=== PATIENT | female | born 1955 | race Caucasian/White ===

== ENCOUNTER 2016-10-03 16:34 | Inpatient (IN) | payer MEDICAID, OTHER ==
[~2016-10-03] VITALS: Ht 129.5 cm; Wt 69.0 kg
[2016-10-03 17:12] VITALS: BP 142/92
[2016-10-03] MEDS ORDERED: PRINIVIL20 M1 PO (17:17)
[2016-10-03] MEDS ORDERED: PRAVACHOL20 M1 PO (17:17)
[2016-10-03] MEDS ORDERED: TAMIFLU75 MG PO (17:17)
[2016-10-03] MEDS ORDERED: OMEPRAZOLE DR20 M1 PO (17:17)
[2016-10-03] MEDS ORDERED: GLYBURIDE2.5 M1 PO (17:17)
--- NOTE | 2016-10-03 19:22 | NUR ---
Patient ambulated to bed 5. RN evaluating patient at bedside.
--- NOTE | 2016-10-03 19:27 | NUR ---
61Y/F PT PRESENTS TO ER WITH C/O COUGH/CONGESTION X4 DAYS. PT STATES SHE WAS SEEN BY PCP 10/01/16 AND STARTED ON TAMIFLU, BUT FEELS LIKE SHE'S GETTING WORSE. HX DM, HTN, HYPERLIPIDEMIA, GERD.DENIES N/V/D; SKIN IS PINK/WARM/DRY; AAOX4 WITH EVEN AND STEADY GAIT; LUNGS CLEAR BL; HR EVEN AND REGULAR; PT DENIES ANY FEVER, CP, SOB, OR COUGH AT THIS TIME; C/O BODY ACHE ,PATIENT STATES PAIN OF 10/10 AT THIS TIME; VSS; PATIENT POSITIONED FOR COMFORT; HOB ELEVATED; BEDRAILS UP X2; BED DOWN. ER MD MADE AWARE OF PT STATUS.
[2016-10-03] MEDS ORDERED: ALBUTEROL SULFATE/IPRATROPIU 3 ML SOL IH ONE (21:10)
[2016-10-03] MEDS ORDERED: predniSONE 20 MG TAB PO ONE (21:10)
[2016-10-03] MEDS ORDERED: ALBUTEROL 0.083% 2.5 MG/3 ML NEBU INH ONE (21:10)
[2016-10-03] MEDS ORDERED: KETOROLAC 30 MG/ML VIAL IVP ONE (21:15)
--- NOTE | 2016-10-03 21:20 | NUR ---
Respiratory Therapist at bedside for respiratory intervention. Patient tolerated .
[2016-10-03] MEDS ORDERED: ALBUTEROL 0.083% 2.5 MG/3 ML NEBU INH PRN (21:25)
[2016-10-03] MEDS ORDERED: LEVOFLOXACIN 500 MG/D5W PREMIX 100 ML IV ONE (21:25)
[2016-10-03] MEDS ORDERED: ACETAMINOPHEN 325 MG TAB PO PRN (21:25)
[2016-10-03] MEDS ORDERED: ONDANSETRON 4 MG/2 ML VIAL IVP PRN (21:25)
[2016-10-03] MEDS ORDERED: GLUCOPHAGE500 MG PO (21:46)
--- NOTE | 2016-10-03 22:10 | NUR ---
Patient will be admitted to care of DR. LILLY. Admited to TELE. Will go to room 121A. Belongings list completed. Report to ROSA ELENA BATEMAN.
[2016-10-03 22:16] VITALS: BP 104/78
--- NOTE | 2016-10-03 22:16 | NUR ---
RECEIVED REPORT FROM ED RN FOR CONTINUITY OF CARE. 61 Y. O. FEMALE ADMITTED WITH DX: SOB, BROUGHT TO UNIT ON GURNEY AMBULATED TO BED. PATIENT IS A&OX4,TURKMEN SPEAKING, DISCUSSED PLAN OF CARE WITH PATIENT, VERBALIZED UNDERSTANDING. SHIFT ASSESSMENT DONE, VS TAKEN STABLE. PATIENT ON 2L O2 WITH INTERMITTENT COUGH. PATIENT DENIES PAIN. IV LT AC 22 GAUGE PATENT AND FLUSHED. SKIN INTACT. SAFETY/FALL PRECAUTIONS ENFORCED. PATIENT USED BEDSIDE COMMODE, VOIDED. CALL LIGHT WITHIN REACH. WILL CONTINUE TO MONITOR
--- NOTE | 2016-10-03 22:56 | NUR ---
SPOKE WITH DR. ROY, INFORMED DR OF LOW MAG LEVEL, ORDERS RECEIVED
[2016-10-03] MEDS: NACL 0.9% 1,000 ML IV SCH (22:58)
[2016-10-03] MEDS ORDERED: INSULIN ASPART SLIDING SCALE 100 UNITS/ML VIAL SUBQ PRN (23:05)
[2016-10-04] VITALS: BP 130/81
[2016-10-04] MEDS ORDERED: MAG SULF 2000 MG/WATER PREMIX 50 ML IV SCH
[2016-10-04] MEDS: ALBUTEROL 0.083% 2.5 MG/3 ML NEBU INH SCH ×4 (00:09→11:03)
--- NOTE | 2016-10-04 00:09 | NUR ---
VS TAKEN, STABLE. PATIENT HAS PERSISTENT COUGH, CALLED RT FOR BREATHING TX. WILL CONTINUE TO MONITOR.
[2016-10-04] MEDS ORDERED: INFLUENZA VIRUS VACCINE QUAD 0.5 ML SYR IMVAC PRN (01:30)
--- NOTE | 2016-10-04 02:17 | NUR ---
PATIENT HAS INTERMITTENT COUGH WHILE SLEEPING. MAG CONNIE INFUSING. CALL LIGHT WITHIN REACH.
[2016-10-04 04:00] VITALS: BP 125/53
--- NOTE | 2016-10-04 04:21 | NUR ---
VS TAKEN, STABLE. ATTEMPTED TO COLLECT SPUTUM SAMPLE, NON PRODUCTIVE COUGH NOTED. CALL LIGHT WITHIN REACH.
[2016-10-04] MEDS: MORPHINE SULFATE 2 MG/ML SYR IVP PRN (06:12)
--- NOTE | 2016-10-04 06:39 | NUR ---
BLOOD SUGAR TAKEN, 357, ADMINISTERED INSULIN PER MD ORDER.
--- NOTE | 2016-10-04 07:12 | NUR ---
ENDORSED PATIENT TO DAYSHIFT RN FOR CONTINUITY OF CARE, PATIENT IS SLEEPING NO S/S OF DISTRESS NOTED.
--- NOTE | 2016-10-04 07:13 | NUR ---
RECEIVED PT FROM ROSA ELENA BATEMAN ASLEEP ON BED BUT EASILY AWAKEN, AAOX4, NO S/S OF RESPIRATORY DISTRESS, WITH O2 2LPM NC, SKIN IS INTACT. WITH IV ACCESS ON LEFT AC 22G INFUSING FLUIDS WELL. DISCUSSED PLAN OF CARE, PT VERBALIZED UNDERSTANDING. CALL LIGHT WIHTIN REACH, WILL CONTINUE TO MONITOR.
[2016-10-04] MEDS ORDERED: BLOOD GLUCOSE MONITORING 1 DEV DEV FS SCH ×2 (07:30→11:30)
[2016-10-04 08:00] VITALS: BP 119/70
[2016-10-04] MEDS: FAMOTIDINE 20 MG TAB PO SCH (08:58)
[2016-10-04] MEDS: SACCHAROMYCES 250 MG CAP PO SCH ×2 (08:58→21:15)
[2016-10-04] MEDS: DOCUSATE SODIUM 100 MG GELCAP PO SCH (08:58)
--- NOTE | 2016-10-04 09:00 | NUR ---
DUE MEDS GIVEN, PT TOLERATED WELL. ALL NEEDS MET AT THIS TIME. CALL LIGHT WITHIN REACH, WILL CONTINUE TO MONITOR.
--- NOTE | 2016-10-04 10:21 | NUR ---
WITH RELATIVE AT BEDSIDE. PT HAS INTERMITTENT NON PRODUCTIVE COUGH. ASSISTED PT TO RESTROOM THEN BACK TO BED. NO S/S OF RESPIRATORY DISTRESS. CALL LIGHT WITHIN REACH, WILL CONTINUE TO MONITOR.
--- NOTE | 2016-10-04 10:35 | NUR ---
DR FONSECA AT BEDSIDE ASSESSING PT
[2016-10-04] MEDS ORDERED: ALBUTEROL SULFATE/IPRATROPIU 3 ML SOL IH PRN (10:45)
[2016-10-04] MEDS ORDERED: DEXTROSE 50% 50 ML SYR IVP PRN (10:55)
[2016-10-04] MEDS: ALBUTEROL SULFATE/IPRATROPIU 3 ML SOL IH SCH ×4 (11:03→23:03)
--- NOTE | 2016-10-04 11:03 | NUR ---
PT WAS GIVEN ALBUTEROL 2.5MG AND THEN CHANGED PT'S BREATHING TX MEDICINE TO DUONEB Q4 AFTER TX WE GIVEN
[2016-10-04] MEDS ORDERED: guaiFENesin DM SUGAR FREE 100 MG/5 ML UDBTL PO PRN (11:15)
[2016-10-04] MEDS: BLOOD GLUCOSE MONITORING 1 DEV DEV FS SCH ×3 (11:20→21:14)
[2016-10-04] MEDS: HYDROcodone/APAP 7.5/325 MG 1 TAB PO PRN (11:25)
[2016-10-04] MEDS: INSULIN ASPART SLIDING SCALE 100 UNITS/ML VIAL SUBQ PRN ×3 (11:32→21:21)
--- NOTE | 2016-10-04 11:35 | NUR ---
ABG DRAWN ON RR WITHOUT INCIDENT AND ON ROOM AIR, RESULTS WERE GIVEN TO WITH NO CHANGES MADE TO PT AND PLACED PT BACK ON 3LNC AND NOTIFIED THAT PT WAS IN PAIN
--- NOTE | 2016-10-04 11:38 | NUR ---
DR. FONSECA INFORMED OF [facility]. NO NEW ORDERS. COPY OF CT CHEST FROM [facility] RECEIVED FROM RELATIVE, GIVEN TO DR FONSECA, COPY MADE AND PLACED IN CHART.
[2016-10-04 12:00] VITALS: BP 145/78
[2016-10-04] MEDS ORDERED: PANTOPRAZOLE 40 MG TABEC PO SCH (12:00)
[2016-10-04] MEDS ORDERED: METOPROLOL SUCCINATE 50 MG TABER PO SCH (12:00)
[2016-10-04] MEDS ORDERED: glyBURIDE 2.5 MG TAB PO SCH (12:00)
[2016-10-04] MEDS ORDERED: ASPIRIN 81 MG TAB.CHEW PO SCH (12:00)
[2016-10-04] MEDS ORDERED: methylPREDNISolone SS 40 MG/ML VIAL IVP SCH (12:00)
[2016-10-04] MEDS ORDERED: ATORVASTATIN 20 MG TAB PO SCH (12:00)
[2016-10-04] MEDS ORDERED: LISINOPRIL 20 MG TAB PO SCH (12:00)
--- NOTE | 2016-10-04 12:14 | NUR ---
NEW IV STARTED ON LEFT THUMB 20G PATENT AND INTACT. NO S/S OF DISTRESS, PT STILL ON O2 2LPM. ALL NEEDS MET AT THIS TIME, WILL CONTINUE TO MONITOR.
[2016-10-04] MEDS ORDERED: AZITHROMYCIN 500 MG in DEXTROSE 5% 250 ML IV SCH (13:00)
--- NOTE | 2016-10-04 13:53 | NUR ---
PT LEFT FOR CT WITH CEMENT CRUSHER OPERATOR ON A WHEELCHAIR, WITH O2 2LPM IN STABLE CONDITION.
--- NOTE | 2016-10-04 14:20 | NUR ---
PT BACK TO UNIT FROM CT. NO S/S OF DISTRESS. CONNECTED BACK TO IV AND O2. ALL NEEDS MET AT THIS TIME, RELATIVES AT BEDSIDE. CALL LIGHT WITHIN REACH, WILL CONTINUE TO MONITOR.
[2016-10-04] MEDS: NACL 0.9% 1,000 ML IV SCH (15:18)
[2016-10-04 16:00] VITALS: BP 144/78
--- NOTE | 2016-10-04 16:20 | NUR ---
PT AWAKE WITH RELATIVES AT BEDSIDE. NO S/S OF DISTRESS. CALL LIGHT WITHIN REACH, WILL CONTINUE TO MONITOR.
[2016-10-04] MEDS ORDERED: metFORMIN 500 MG TAB PO SCH (17:00)
--- NOTE | 2016-10-04 19:36 | NUR ---
ENDORSED PT TO ROSA ELENA ALAMO FOR CONTINUITY OF CARE IN STABLE CONDITION
--- NOTE | 2016-10-04 19:45 | NUR ---
RECEIVED PT IN STABLE CONDITION FROM [place] NURSE. AWAKE,ALERT AND ORIENTED X4. ON TELE MONITOR. NO DISTRESS NOTED . BUT STILL WITH OCCASIONAL PRODUCTIVE COUGH. WITH IVF INFUSING WELL ON THE LT AC 322. CLEAR AND PATENT. HL ON THE LT THUMB #20. CLEAR AND PATENT ALSO. PLAN OF CARE DISCUSSED AND VERBALIZED UNDERSTANDING. FAMILY MEMBERS AT BEDSIDE. AND ALSO MADE AWARE OF PLAN OF CARE. CALL LIGHT PLACED WITHIN EASY REACH AND WILL CONTINUE TO [facility].
[2016-10-04 20:00] VITALS: BP 122/65
[2016-10-04] MEDS: methylPREDNISolone SS 40 MG/ML VIAL IVP SCH (21:15)
--- NOTE | 2016-10-04 22:45 | NUR ---
ASSISTED UP TO THE BATHROOM BY AIDE. NO DISTRESS NOTED.
[2016-10-05] MEDS: NACL 0.9% 1,000 ML IV SCH ×3 (00:08→13:57)
[2016-10-05] MEDS: MORPHINE SULFATE 2 MG/ML SYR IVP PRN (00:20)
[2016-10-05 00:30] VITALS: BP 123/81
--- NOTE | 2016-10-05 00:35 | NUR ---
PAGED DR. SHAFER FOR COUGH MEDICINE THAT IS NOT AVAILABLE. CALLED BACK AND MADE NEW ORDER.
--- NOTE | 2016-10-05 01:30 | NUR ---
LAST TROPONIN DRAWN EARLIER 99 RESULT NEGATIVE.
[2016-10-05] MEDS: ALBUTEROL SULFATE/IPRATROPIU 3 ML SOL IH SCH ×6 (03:01→23:11)
--- NOTE | 2016-10-05 03:05 | NUR ---
SPUTUM SPECIMEN SENT TO LAB.
[2016-10-05] MEDS: guaiFENesin 20 MG/ML UDC PO PRN ×4 (03:26→21:22)
--- NOTE | 2016-10-05 04:11 | NUR ---
SPUTUM SEND CANCELLED. TEST ALREADY DONE.
[2016-10-05 04:30] VITALS: BP 128/69
--- NOTE | 2016-10-05 05:00 | NUR ---
SLEEPING AT THIS TIME. NO S. OF ANY DISTRESS NOTED.
[2016-10-05] MEDS: BLOOD GLUCOSE MONITORING 1 DEV DEV FS SCH ×4 (06:19→21:11)
[2016-10-05] MEDS: INSULIN ASPART SLIDING SCALE 100 UNITS/ML VIAL SUBQ PRN ×4 (06:20→21:12)
[2016-10-05] MEDS: PANTOPRAZOLE 40 MG TABEC PO SCH (06:30)
--- NOTE | 2016-10-05 07:30 | NUR ---
ENDORSED PT IN STABLE CONDITION TO AM NURSE.
--- NOTE | 2016-10-05 07:32 | NUR ---
RECEIVED PT FROM PM NURSE. PT SEEN AT BEDSIDE. NO S/S DISTRESS AT THIS TIME. ON ROOM AIR. PT HAVING FREQUENT, DRY, NONPRODUCTIVE COUGHS. PT DENIES FEELING SOB AT THIS TIME. AAOX4, PRIMARILY CHINESE SPEAKING. PT HAS A LEFT THUMB 20G IV SALINE LOCKED AND LEFT AC 22G IV RUNNING IVF AT THIS TIME. IV'S ARE PATENT AND INTACT WITH NO S/S COMPLICATIONS AT THIS TIME. PT IS AMBULATORY, SKIN INTACT. SAFETY MEASURES CHECKED, CALL LIGHT LEFT AT BEDSIDE. WILL CONTINUE TO MONITOR.
[2016-10-05 08:00] VITALS: BP 136/72
[2016-10-05] MEDS: glyBURIDE 2.5 MG TAB PO SCH (08:00)
--- NOTE | 2016-10-05 08:29 | NUR ---
GLYBURIDE NONADMINISTERED BECAUSE PT HAD A CTA YESTERDAY. PER REPORT, HOLD GLYBURIDE FOR 2 DAYS. TO BE RESTARTED TOMORROW AM.
[2016-10-05] MEDS: ATORVASTATIN 20 MG TAB PO SCH (09:15)
[2016-10-05] MEDS: ASPIRIN 81 MG TAB.CHEW PO SCH (09:15)
[2016-10-05] MEDS: methylPREDNISolone SS 40 MG/ML VIAL IVP SCH ×2 (09:15→21:10)
[2016-10-05] MEDS: DOCUSATE SODIUM 100 MG GELCAP PO SCH (09:15)
[2016-10-05] MEDS: AZITHROMYCIN 250 MG TAB PO SCH (09:15)
[2016-10-05] MEDS: METOPROLOL SUCCINATE 50 MG TABER PO SCH (09:16)
[2016-10-05] MEDS: LISINOPRIL 20 MG TAB PO SCH (09:16)
[2016-10-05] MEDS: SACCHAROMYCES 250 MG CAP PO SCH ×2 (09:20→21:10)
[2016-10-05] MEDS: FAMOTIDINE 20 MG TAB PO SCH (09:20)
--- NOTE | 2016-10-05 09:20 | NUR ---
ROUTINE MEDICATIONS GIVEN WITH EDUCATION. PT VERBALIZED UNDERSTANDING. CUPOLA TAPPER AT BEDSIDE PREPARING PATIENT FOR ECHO. WILL CONTINUE TO MONITOR.
--- NOTE | 2016-10-05 09:22 | NUR ---
PATIENT HAS BEEN SCREENED AND CATEGORIZED HIGH NUTRITION RISK. PATIENT WILL BE SEEN WITHIN 1-2 DAYS OF ADMISSION. 10/04/16-10/05/[address]
[2016-10-05 12:00] VITALS: BP 122/68
--- NOTE | 2016-10-05 12:43 | NUR ---
ROUTINE MEDICATIONS GIVEN WITH EDUCATION. BLOOD SUGAR 226. INSULIN ALSO ADMINISTERED. WILL CONTINUE TO MONITOR.
--- NOTE | 2016-10-05 14:53 | NUR ---
10/05/16 RD INITIAL ASSESSMENT COMPLETED PLEASE REFER TO NUTRITION ASSESSMENT UNDER CARE ACTIVITY FOR ESTIMATED NUTRITIONAL NEEDS. RD RECOMMENDATIONS: 1. RECOMMEND CCHO 60 GM, CARDIAC DIET TOLERATED PER MD 2. RD PROVIDED PT WITH DM DIET EDUCATION. PT ACCEPTED. 3. CONSIDER RE MEASURING PT HEIGHT, PT STATES HEIGHT IS 56, EMR STATES PT HEIGHT IS [address] WILL F/U 3-5 DAYS; MODERATE RISK. DAI KENNEDY RD
[2016-10-05] MEDS: HYDROcodone/APAP 7.5/325 MG 1 TAB PO PRN (15:47)
--- NOTE | 2016-10-05 15:47 | NUR ---
PT C/O 03/25 HEADACHE. NORCO ADMINISTERED.
[2016-10-05 16:00] VITALS: BP 123/76
--- NOTE | 2016-10-05 16:47 | NUR ---
PT STATES THAT HEADACHE IS VERY MINIMAL, AT 2/10 PAIN. WILL CONTINUE TO MONITOR.
--- NOTE | 2016-10-05 17:22 | NUR ---
ACCUCHECK 289. COVERED WITH INSULIN.
--- NOTE | 2016-10-05 18:00 | NUR ---
PT FAMILY AT BEDSIDE. NEW WATER CUP OFFERED FOR PATIENT. WILL CONTINUE TO MONITOR.
--- NOTE | 2016-10-05 19:18 | NUR ---
PT SEEN AT BEDSIDE. REPORT GIVEN TO ROSA ELENA CARR.
--- NOTE | 2016-10-05 19:35 | NUR ---
REPORT RECEIVED FROM DAY NURSEBRIDGETTE. PATIENT RESTING IN BED, WATCHING TELEVISION, SIGNIFICANT OTHER AT BEDSIDE. NO RESPIRATORY DISTRESS, SOB, OR DISCOMFORT. INITIAL ASSESSMENT AND BODY CHECK DONE. PATIENT IS AOX4, SKIN IS INTACT, IV ACCESS TO LEFT THUMB 20G AND LEFT AC 22G, BOTH PORTS PATENT. DISCUSSED PLAN OF CARE, MEDICATION REGIMENT, AND PAIN MANAGEMENT WITH PATIENT AND FAMILY MEMBER. PATIENT VERBALIZED UNDERSTANDING. PLACED PATIENT ON SAFETY PRECAUTIONS. CALL LIGHT LEFT WITHIN REACH, WILL CONTINUE TO MONITOR.
[2016-10-05 20:00] VITALS: BP 117/69
--- NOTE | 2016-10-05 22:04 | NUR ---
PATIENT IN BED, SLEEPING. NO RESPIRATORY DISTRESS, SOB, OR DISCOMFORT. CALL LIGHT LEFT WITHIN REACH, WILL CONTINUE TO MONITOR.
[2016-10-06] VITALS (7 sets, daily range): BP systolic 122–145; BP diastolic 72–88
--- NOTE | 2016-10-06 00:53 | NUR ---
PATIENT ASLEEP. NO RESPIRATORY DISTRESS, SOB, OR DISCOMFORT. CALL LIGHT LEFT WITHIN REACH, WILL CONTINUE TO MONITOR.
[2016-10-06] MEDS: NACL 0.9% 1,000 ML IV SCH ×2 (01:30→17:15)
--- NOTE | 2016-10-06 03:10 | NUR ---
RECEIVED PATIENT FROM BRUNO CUBA FOR CONTINUITY OF CARE. PATIENT IS A&OX4, UPDATED PATIENT ON PLAN OF CARE. NO S/S OF RESPIRATORY DISTRESS NOTED ON 2L VIA NASAL CANNULA, PT HAS INTERMITTENT COUGH. IV TO LT AC 22 GAUGE FLUSHED AND PATENT. IV TO LT THUMB 20 GAUGE PATENT AND INFUSING FLUIDS WELL. SAFETY PRECAUTIONS ENFORCED. CALL LIGHT WITHIN REACH.
--- NOTE | 2016-10-06 03:10 | NUR ---
REPORT GIVEN TO ROSA ELENA BATEMAN, FOR CONTINUITY OF CARE. PATIENT IN BED, RESTING. NO RESPIRATORY DISTRESS, SOB, OR DISCOMFORT. ALL NEEDS ATTENDED TO DURING SHIFT, CALL LIGHT LEFT WITHIN REACH.
[2016-10-06] MEDS: ALBUTEROL SULFATE/IPRATROPIU 3 ML SOL IH SCH ×5 (03:15→19:29)
[2016-10-06] MEDS: MORPHINE SULFATE 2 MG/ML SYR IVP PRN ×2 (04:16→10:55)
--- NOTE | 2016-10-06 04:16 | NUR ---
PT C/O 03/25 HEADACHE MEDICATED PER MD ORDER. CALL LIGHT WITHIN REACH.
[2016-10-06] MEDS: BLOOD GLUCOSE MONITORING 1 DEV DEV FS SCH ×3 (06:02→16:30)
[2016-10-06] MEDS: PANTOPRAZOLE 40 MG TABEC PO SCH (06:20)
[2016-10-06] MEDS: INSULIN ASPART SLIDING SCALE 100 UNITS/ML VIAL SUBQ PRN ×2 (06:21→11:57)
--- NOTE | 2016-10-06 06:21 | NUR ---
DUE MEDICATIONS ADMINISTERED, TOLERATED WELL. PATIENT AMBULATED TO RESTROOM, VOIDED. CALL LIGHT WITHIN REACH.
--- NOTE | 2016-10-06 07:24 | NUR ---
ENDORSED PATIENT TO DAYSHIFT RN FOR CONTINUITY OF CARE, PATIENT IS IN STABLE CONDITION.
--- NOTE | 2016-10-06 07:25 | NUR ---
RECEIVED REPORT FROM ROSA ELENA BATEMAN. PT IS ON O2 2L/MIN NC. PT IS AAOX4. IV TO LEFT THUMB #20 AND LEFT AC #22 PATENT AND INTACT. SKIN IS INTACT. SAFETY PRECAUTIONS IN PLACE WITH BED IN LOWEST POSITION AND SIDE RAILS UP X2. CALL LIGHT WITHIN REACH. WILL CONTINUE TO MONITOR.
--- NOTE | 2016-10-06 08:00 | NUR ---
DR. SHAFER IN TO SEE PT. WILL FOLLOW UP ON ORDERS
[2016-10-06] MEDS: SACCHAROMYCES 250 MG CAP PO SCH (08:40)
[2016-10-06] MEDS: ATORVASTATIN 20 MG TAB PO SCH (08:40)
[2016-10-06] MEDS: AZITHROMYCIN 250 MG TAB PO SCH (08:41)
[2016-10-06] MEDS: ASPIRIN 81 MG TAB.CHEW PO SCH (08:41)
[2016-10-06] MEDS: glyBURIDE 2.5 MG TAB PO SCH (08:41)
[2016-10-06] MEDS: DOCUSATE SODIUM 100 MG GELCAP PO SCH (08:41)
[2016-10-06] MEDS: methylPREDNISolone SS 40 MG/ML VIAL IVP SCH (08:41)
[2016-10-06] MEDS: LISINOPRIL 20 MG TAB PO SCH (08:43)
[2016-10-06] MEDS: FAMOTIDINE 20 MG TAB PO SCH (08:43)
[2016-10-06] MEDS: METOPROLOL SUCCINATE 50 MG TABER PO SCH (08:43)
--- NOTE | 2016-10-06 08:48 | NUR ---
CHECKED BP: 122/76 AND HR: 89. ADMINISTERED MEDICATION ORDERED. PT TOLERATED WELL.
--- NOTE | 2016-10-06 09:14 | NUR ---
DR. BURLESON IN TO SEE PT. WILL FOLLOW UP ON ORDERS.
--- NOTE | 2016-10-06 10:57 | NUR ---
PT C/O HEADACHE, 05/25. CHECKED BP: 140/86. ADMINISTERED MORPHINE ORDERED FOR PRN PAIN. PT TOLERATED WELL. WILL REASSESS.
--- NOTE | 2016-10-06 11:38 | NUR ---
PAGED DR. ANDERSON REGARDING RESULTS OF CXR. AWAITING CALLBACK.
--- NOTE | 2016-10-06 11:40 | NUR ---
RECEIVED CALLBACK FROM DR. ANDERSON. INFORMED HIM OF RESULTS. NO NEW ORDERS AT THIS TIME.
--- NOTE | 2016-10-06 12:00 | NUR ---
PT TOLERATED MEDS WELL.
[2016-10-06] MEDS: guaiFENesin 20 MG/ML UDC PO PRN (13:41)
--- NOTE | 2016-10-06 13:43 | NUR ---
PT C/O COUGH. ADMINISTERED ROBITUSSIN ORDERED PRN. PT TOLERATED WELL.
--- NOTE | 2016-10-06 14:48 | NUR ---
PT SATTING AT 95% ON ROOM AIR. WILL CONTINUE TO MONITOR.
--- NOTE | 2016-10-06 17:00 | NUR ---
CHECKED ON PT. RESTING AT THIS TIME, AROUSABLE. CALL LIGHT WITHIN REACH.
[2016-10-06] MEDS ORDERED: PROVENTIL2.5 MG/3 M INH (19:01)
--- NOTE | 2016-10-06 19:10 | NUR ---
ENDORSED CARE TO BRUNO Caro RN. PT IN STABLE CONDITION.
--- NOTE | 2016-10-06 19:20 | NUR ---
RECEIVED REPORT FROM DAY NURSEBHAVANA. PATIENT RESTING IN BED, WATCHING TELEVISION, FAMILY AT BEDSIDE. NO RESPIRATORY DISTRESS, SOB, OR DISCOMFORT. INITIAL ASSESSMENT AND BODY CHECK DONE. PATIENT IS AOX4, SKIN IS INTACT, IV ACCESS TO LEFT HAND 20G AND LEFT AC 22G, BOTH PORTS PATENT. DISCUSSED PLAN OF CARE, MEDICATION REGIMENT, AND PAIN MANAGEMENT WITH PATIENT AND FAMILY. PATIENT VERBALIZED UNDERSTANDING. PLACED PATIENT ON SAFETY PRECAUTIONS. CALL LIGHT LEFT WITHIN REACH, WILL CONTINUE TO MONITOR.
--- NOTE | 2016-10-06 20:35 | NUR ---
PATIENT DISCHARGED AT THIS TIME VIA WHEELCHAIR, USING PRIVATE VEHICLE. PATIENT ACCOMPANIED BY FAMILY. ALL DISCHARGE PAPERWORK EDUCATED ON, PATIENT VERBALIZED UNDERSTANDING AND SIGNED. ALL ID BANDS AND TELE MONITOR REMOVED. BOTH IV ACCESS REMOVED AND 4X4 APPLIED TO SITES. TIP STILL INTACT, NO BLEEDING NOTED.
[2016-10-07] MEDS ORDERED: PANTOPRAZOLE 40 MG TABEC PO SCH (06:30)
== END 2016-10-06 20:35 | disposition home or self-care (01) | DRG 460 ==
LOC: MED 16:48 → MTU 21:24
PROVIDERS: ADMIT Student in an Organized Health Care Education/Training Program; ATTEND Student in an Organized Health Care Education/Training Program
DX: N17.0 Acute kidney failure with tubular necrosis (principal); J96.00 Acute respiratory failure, unspecified whether with hypoxia or hypercapnia; E43 Unspecified severe protein-calorie malnutrition; E11.51 Type 2 diabetes mellitus with diabetic peripheral angiopathy without gangrene; D68.69 Other thrombophilia; J44.0 Chronic obstructive pulmonary disease with (acute) lower respiratory infection; E11.65 Type 2 diabetes mellitus with hyperglycemia; E87.8 Other disorders of electrolyte and fluid balance, not elsewhere classified; M94.0 Chondrocostal junction syndrome [Tietze]; E87.1 Hypo-osmolality and hyponatremia; E83.42 Hypomagnesemia; J44.1 Chronic obstructive pulmonary disease with (acute) exacerbation; R80.9 Proteinuria, unspecified; E78.5 Hyperlipidemia, unspecified; E66.01 Morbid (severe) obesity due to excess calories; I10 Essential (primary) hypertension; J20.9 Acute bronchitis, unspecified; E78.00 Pure hypercholesterolemia, unspecified; K21.9 Gastro-esophageal reflux disease without esophagitis; Z90.49 Acquired absence of other specified parts of digestive tract; Z68.41 Body mass index [BMI] 40.0-44.9, adult; Z79.899 Other long term (current) drug therapy; Z87.891 Personal history of nicotine dependence; Z82.61 Family history of arthritis; Z80.9 Family history of malignant neoplasm, unspecified

== ENCOUNTER 2024-01-25 18:13 | Inpatient (IN) | payer MEDICAID ==
[~2024-01-25] VITALS: Ht 162.6 cm; Wt 63.0 kg
[~2024-01-25 18:13] MED LIST: GLYB2.5T10 PO; LISI20TA2 PO; METF-346 PO; OMEP-100 PO; PRAV20TA2 PO; PRON INH; TAM75 PO
[2024-01-25 18:19] VITALS: BP 167/80; PULSE 99; RESP 18; TEMP 102.1; O2SAT 95
[2024-01-25] MEDS: NACL 0.9% 2,000 ML IV ONE (19:41)
[2024-01-25] MEDS: ACETAMINOPHEN EXTRA STRENGTH 500 MG TAB PO ONE (19:42)
[2024-01-25] MEDS: ONDANSETRON 4 MG/2 ML VIAL IVP ONE (19:42)
[2024-01-25] MEDS: KETOROLAC 30 MG/ML VIAL IVP ONE (19:43)
[2024-01-25 19:48] LABS: BASOPHILS # (AUTO) 0.1 K/uL (0.00-0.22); BASOPHILS % (AUTO) 0.6 % (0.0-2.0); EOSINOPHILS # (AUTO) 0.2 K/uL (0-0.4); EOSINOPHILS % (AUTO) 1.8 % (0.0-4.0); HEMATOCRIT 38.6 % (36-48); HEMOGLOBIN 12.6 g/dL (12.0-16.0); LYMPHOCYTES # (AUTO) 0.7 K/uL (2.5-16.5); LYMPHOCYTES % (AUTO) 6.3 % (20.5-51.1); MEAN CORPUSCULAR HEMOGLOBIN 28 pg (27-31); MEAN CORPUSCULAR HGB CONC 33 g/dL (33-37); MEAN CORPUSCULAR VOLUME 85.5 fL (80-94); MONOCYTES # (AUTO) 0.3 K/uL (0.8-1.0); MONOCYTES % (AUTO) 2.2 % (1.7-9.3); NEUTROPHILS # (AUTO) 10.5 K/uL (1.8-7.7); NEUTROPHILS % (AUTO) 89.1 % (42.2-75.2); PLATELET COUNT (AUTO) 286 K/uL (140-450); RED BLOOD CELL COUNT(AUTO) 4.51 MIL/uL (4.20-5.40); RED CELL DISTRIBUTION WIDTH 14.8 % (11.6-13.7); WHITE BLOOD COUNT (AUTO) 11.8 K/uL (4.8-10.8)
[2024-01-25 20:04] LABS: ANION GAP 15.9 (8-16); CREATININE 1.2 mg/dL (0.6-1.3); POTASSIUM 4.9 mmol/L (3.5-5.1)
[2024-01-25 20:15] LABS: LACTIC ACID 2.2 mmol/L (0.4-2.0)
[2024-01-25 20:19] LABS: ALBUMIN 2.9 g/dL (3.4-5.0); BILIRUBIN,DIRECT 0.1 mg/dL (0.0-0.3); TOTAL BILIRUBIN 0.4 mg/dL (0.0-1.0); TOTAL PROTEIN, SERUM 7.1 g/dL (6.4-8.2)
[2024-01-25 21:21] LABS: BILIRUBIN,URINE NEGATIVE (NEGATIVE); BLOOD, URINE TRACE-I (NEGATIVE); COLOR,URINE YELLOW (YELLOW); LEUKOCYTE ESTERASE ,URINE NEGATIVE (NEGATIVE); NITRITE, URINE NEGATIVE (NEGATIVE); PROTEIN,URINE 2+ (NEGATIVE); UGLUCOSE 3+ (NEGATIVE); UROBILINOGEN,URINE 0.2 EU/dL (0.2 - 1)
[2024-01-25 21:22] LABS: APPEARANCE,URINE SLIGHTLY HAZY (CLEAR)
[2024-01-25 21:24] LABS: RBC,URINE 0-5 /HPF (0-5); WBC,URINE 0-5 /HPF (0-5)
[2024-01-25 21:25] LABS: BACTERIA,URINE 1+ /HPF (None Seen); MUCUS,URINE None Seen /LPF (None Seen); SQUAMOUS EPITHELIAL CELL,UR 0-3 (FEW) /LPF (0-3 (FEW))
[2024-01-25] MEDS ORDERED: PIPERACILLIN/TAZOBACTAM 3.375 GM VIAL IV ONE (21:48)
[2024-01-25 22:05] LABS: FLU A ANTIGEN negative (NEGATIVE); FLU B ANTIGEN NEGATIVE (NEGATIVE)
[2024-01-25] MEDS: PIPERACILLIN/TAZOBACTAM 3.375 GM in DEXTROSE 5% 50 ML IV ONE (22:06)
[2024-01-25] MEDS: NACL 0.9% 1,000 ML IV SCH (22:30)
[2024-01-26] MEDS: ACETAMINOPHEN 325 MG TAB PO PRN (00:04)
[2024-01-26] MEDS: MORPHINE SULFATE 4 MG/ML SYR IVP PRN (01:32)
[2024-01-26 06:30] LABS: BASOPHILS % (AUTO) 0.5 % (0.0-2.0); EOSINOPHILS # (AUTO) 0.1 K/uL (0-0.4); EOSINOPHILS % (AUTO) 1.3 % (0.0-4.0); HEMATOCRIT 36.4 % (36-48); HEMOGLOBIN 12.1 g/dL (12.0-16.0); LYMPHOCYTES # (AUTO) 0.5 K/uL (2.5-16.5); LYMPHOCYTES % (AUTO) 10.6 % (20.5-51.1); MEAN CORPUSCULAR HEMOGLOBIN 29 pg (27-31); MEAN CORPUSCULAR HGB CONC 33 g/dL (33-37); MEAN CORPUSCULAR VOLUME 86.4 fL (80-94); MONOCYTES # (AUTO) 0.3 K/uL (0.8-1.0); MONOCYTES % (AUTO) 6.2 % (1.7-9.3); NEUTROPHILS # (AUTO) 3.7 K/uL (1.8-7.7); NEUTROPHILS % (AUTO) 81.4 % (42.2-75.2); PLATELET COUNT (AUTO) 237 K/uL (140-450); RED BLOOD CELL COUNT(AUTO) 4.21 MIL/uL (4.20-5.40); RED CELL DISTRIBUTION WIDTH 14.6 % (11.6-13.7); WHITE BLOOD COUNT (AUTO) 4.5 K/uL (4.8-10.8)
[2024-01-26] MEDS ORDERED: METF-352 PO (07:17)
[2024-01-26] MEDS ORDERED: EZET10TA50 PO (07:17)
[2024-01-26] MEDS ORDERED: GLYB5TAB14 PO (07:17)
[2024-01-26] MEDS ORDERED: ATOR10TA51 PO (07:17)
[2024-01-26] MEDS ORDERED: LISI40TA8 PO (07:17)
[2024-01-26] MEDS ORDERED: AMLO10TA88 PO (07:17)
[2024-01-26] MEDS ORDERED: OMEP-303 PO (07:17)
[2024-01-26] MEDS ORDERED: SITA100T8 PO (07:17)
[2024-01-26 07:30] LABS: ALBUMIN 2.5 g/dL (3.4-5.0); ANION GAP 11.5 (8-16); CALCIUM 7.8 mg/dL (8.5-10.1); CARBON DIOXIDE 25.2 mmol/L (21-32); CREATININE 1.1 mg/dL (0.6-1.3); POTASSIUM 4.7 mmol/L (3.5-5.1); TOTAL BILIRUBIN 1.7 mg/dL (0.0-1.0); TOTAL PROTEIN, SERUM 6.2 g/dL (6.4-8.2)
[2024-01-26] MEDS: ONDANSETRON 4 MG/2 ML VIAL IVP PRN (08:05)
[2024-01-26] MEDS: DOCUSATE SODIUM 100 MG GELCAP PO SCH (11:48)
[2024-01-26] MEDS: PANTOPRAZOLE 40 MG INJ VIAL IVP SCH (11:48)
[2024-01-26] MEDS: lisinopriL 20 MG TAB PO SCH (11:48)
[2024-01-26 12:20] VITALS: PULSE 82; RESP 18; O2SAT 95
[2024-01-26 16:00] VITALS: BP 153/78; PULSE 83; RESP 18; TEMP 98.1; O2SAT 92
[2024-01-26 20:00] VITALS: BP 152/77; PULSE 87; RESP 18; TEMP 97.5; TEMP 97.8; O2SAT 96
[2024-01-26] MEDS: LORazepam 1 MG TAB PO PRN (22:12)
[2024-01-27] VITALS: BP 143/76; PULSE 69; RESP 18; TEMP 97.8; O2SAT 95
[2024-01-27 04:00] VITALS: BP 143/76; PULSE 81; RESP 18; TEMP 97.8; O2SAT 96
[2024-01-27 06:55] LABS: BASOPHILS % (AUTO) 0.6 % (0.0-2.0); EOSINOPHILS # (AUTO) 0.4 K/uL (0-0.4); EOSINOPHILS % (AUTO) 9.9 % (0.0-4.0); HEMATOCRIT 37.6 % (36-48); HEMOGLOBIN 12.2 g/dL (12.0-16.0); LYMPHOCYTES # (AUTO) 1.6 K/uL (2.5-16.5); LYMPHOCYTES % (AUTO) 39.7 % (20.5-51.1); MEAN CORPUSCULAR HEMOGLOBIN 28 pg (27-31); MEAN CORPUSCULAR HGB CONC 32 g/dL (33-37); MEAN CORPUSCULAR VOLUME 86.7 fL (80-94); MONOCYTES # (AUTO) 0.4 K/uL (0.8-1.0); MONOCYTES % (AUTO) 10.4 % (1.7-9.3); NEUTROPHILS # (AUTO) 1.6 K/uL (1.8-7.7); NEUTROPHILS % (AUTO) 39.4 % (42.2-75.2); PLATELET COUNT (AUTO) 243 K/uL (140-450); RED BLOOD CELL COUNT(AUTO) 4.34 MIL/uL (4.20-5.40); RED CELL DISTRIBUTION WIDTH 15.3 % (11.6-13.7); WHITE BLOOD COUNT (AUTO) 4.1 K/uL (4.8-10.8)
[2024-01-27 08:00] VITALS: BP 153/67; PULSE 60; RESP 18; TEMP 98.4; O2SAT 95
[2024-01-27 08:06] LABS: ALBUMIN 2.4 g/dL (3.4-5.0); ANION GAP 11.9 (8-16); CALCIUM 8.4 mg/dL (8.5-10.1); POTASSIUM 3.9 mmol/L (3.5-5.1); TOTAL BILIRUBIN 0.6 mg/dL (0.0-1.0); TOTAL PROTEIN, SERUM 3.9 g/dL (6.4-8.2)
[2024-01-27 12:00] VITALS: BP 153/67; PULSE 60; RESP 18; TEMP 98.4; O2SAT 95
[2024-01-27 16:00] VITALS: BP 141/81; PULSE 83; RESP 18; TEMP 98.1; O2SAT 95
[2024-01-27 20:00] VITALS: BP 132/68; PULSE 82; RESP 19; TEMP 97.8; O2SAT 95
[2024-01-27] MEDS: ZOLPIDEM 5 MG TAB PO PRN (21:29)
[2024-01-28 04:00] VITALS: BP 183/80; PULSE 84; RESP 20; TEMP 98.1; O2SAT 95
[2024-01-28] MEDS: hydrALAZINE 20 MG/ML VIAL IVP PRN (05:36)
[2024-01-28 07:10] LABS: BASOPHILS % (AUTO) 0.9 % (0.0-2.0); EOSINOPHILS # (AUTO) 0.3 K/uL (0-0.4); EOSINOPHILS % (AUTO) 7.9 % (0.0-4.0); HEMATOCRIT 41.1 % (36-48); HEMOGLOBIN 13.8 g/dL (12.0-16.0); LYMPHOCYTES # (AUTO) 1.6 K/uL (2.5-16.5); MEAN CORPUSCULAR HEMOGLOBIN 28 pg (27-31); MEAN CORPUSCULAR HGB CONC 34 g/dL (33-37); MEAN CORPUSCULAR VOLUME 84.9 fL (80-94); MONOCYTES # (AUTO) 0.4 K/uL (0.8-1.0); MONOCYTES % (AUTO) 8.5 % (1.7-9.3); NEUTROPHILS # (AUTO) 1.8 K/uL (1.8-7.7); NEUTROPHILS % (AUTO) 43.7 % (42.2-75.2); PLATELET COUNT (AUTO) 296 K/uL (140-450); RED BLOOD CELL COUNT(AUTO) 4.84 MIL/uL (4.20-5.40); RED CELL DISTRIBUTION WIDTH 15.1 % (11.6-13.7); WHITE BLOOD COUNT (AUTO) 4.2 K/uL (4.8-10.8)
[2024-01-28 07:31] LABS: ALBUMIN 2.7 g/dL (3.4-5.0); ANION GAP 12.1 (8-16); CALCIUM 9.1 mg/dL (8.5-10.1); CARBON DIOXIDE 28.2 mmol/L (21-32); CREATININE 0.9 mg/dL (0.6-1.3); POTASSIUM 4.3 mmol/L (3.5-5.1); TOTAL BILIRUBIN 0.5 mg/dL (0.0-1.0); TOTAL PROTEIN, SERUM 6.9 g/dL (6.4-8.2)
[2024-01-28 08:00] VITALS: BP 135/68; PULSE 80; RESP 18; TEMP 97.9; O2SAT 95
[2024-01-28] MEDS ORDERED: amLODIPine 5 MG TAB PO SCH (09:00)
[2024-01-28] MEDS: FLUoxetine 20 MG CAP PO SCH (09:48)
[2024-01-28] MEDS: amLODIPine 5 MG TAB PO SCH (09:49)
[2024-01-28 12:08] LABS: HEPATITIS A ANTIBODY IGM Negative (Negative); HEPATITIS B CORE AB TOTAL Negative (Negative); HEPATITIS B CORE, IGM Negative (Negative); HEPATITIS B SURFACE ANTIBODY Reactive (.); HEPATITIS B SURFACE ANTIGEN Negative (Negative); HEPATITIS C VIRUS ANTIBODY Non Reactive (Non Reactive)
[2024-01-28 13:52] LABS: HEPATITIS A ANTIBODY TOTAL Positive (Negative)
[2024-01-28 16:00] VITALS: BP 139/74; PULSE 87; RESP 18; TEMP 98.5; O2SAT 100
[2024-01-28] MEDS ORDERED: ONDA-188 PO (16:38)
[2024-01-28 17:52] VITALS: BP 139/74; PULSE 87; RESP 18; TEMP 98.5
[2024-01-28] MEDS ORDERED: MIRTAZAPINE 15 MG TAB PO SCH (21:00)
== END 2024-01-28 16:15 | disposition home or self-care (01) | DRG 247 ==
LOC: MED 18:13 → MMU 22:29 → MTU 01-26 06:40
PROVIDERS: ADMIT Student in an Organized Health Care Education/Training Program; ATTEND Student in an Organized Health Care Education/Training Program
DX: K56.609 Unspecified intestinal obstruction, unspecified as to partial versus complete obstruction (principal); R65.11 Systemic inflammatory response syndrome (SIRS) of non-infectious origin with acute organ dysfunction; E87.20 Acidosis, unspecified; E11.65 Type 2 diabetes mellitus with hyperglycemia; Z20.822 Contact with and (suspected) exposure to COVID-19; I10 Essential (primary) hypertension; F32.9 Major depressive disorder, single episode, unspecified; Z79.899 Other long term (current) drug therapy
CPT/HCPCS: 36415; 76700; 80048; 80053; 80076; 81001; 82948; 83605; 83690; 85025; 86704; 86706; 86708; 86709; 86803; 87040; 87081; 87340; 96361; 96365; 96375; 99291; C9113; J0360; J1644; J1885; J2270; J2405; J2543; Q0092

== ENCOUNTER 2024-04-18 16:47 | Emergency (ER) | payer SELFPAY ==
[~2024-04-18] VITALS: Ht 147.3 cm; Wt 66.4 kg
[~2024-04-18 16:47] MED LIST changes: +AMLO10TA88 PO; +ATOR10TA51 PO; +EZET10TA50 PO; +GLYB5TAB14 PO; -LISI20TA2 PO; +LISI40TA8 PO; -METF-346 PO; +METF-352 PO; +ONDA-188 PO; +SITA100T8 PO; -TAM75 PO
[2024-04-18 17:10] VITALS: BP 240/114; PULSE 87; RESP 18; TEMP 98.2; O2SAT 97
--- NOTE | 2024-04-18 17:20 | NUR ---
PT W/C ASSISTED TO BED 10
--- NOTE | 2024-04-18 17:25 | NUR ---
68YO FEMALE PT C/O HEADACHE AND GEN WEAKNESS X3DAYS. REPORTS ONSET W/ DIZZINESS. REFFERED BY PCP D/T HP. PT HYPERTENSIVE ON ARRIVAL : 220/114. STATES BEING COMPLIANT W/ BP RX. DENIES CHANGE IN VISION, N/V/D, CHEST PAIN, SOB, FEVER, OR CHILLS. PT AAOX4, AMB W/ ASSIST. ON GINNING OPERATOR. BED AT LOWEST POSITION, BED RAILS UPX2. CALL LIGHT WITHIN REACH. HX: HTN, DM NKA
--- NOTE | 2024-04-18 17:28 | NUR ---
MD HERNÁNDEZ AT BEDSIDE FOR EVALUATION
[2024-04-18] MEDS ORDERED: ENALAPRILAT 2.5 MG/2 ML VIAL IVP ONE (17:36)
[2024-04-18] MEDS: ENALAPRILAT 2.5 MG/2 ML VIAL IVP ONE (17:40)
[2024-04-18 17:45] LABS: BASOPHILS % (AUTO) 0.2 % (0.0-2.0); EOSINOPHILS # (AUTO) 0.3 K/uL (0-0.4); EOSINOPHILS % (AUTO) 2.5 % (0.0-4.0); HEMATOCRIT 44.2 % (36-48); HEMOGLOBIN 14.7 g/dL (12.0-16.0); LYMPHOCYTES # (AUTO) 2.8 K/uL (2.5-16.5); LYMPHOCYTES % (AUTO) 27.4 % (20.5-51.1); MEAN CORPUSCULAR HEMOGLOBIN 29 pg (27-31); MEAN CORPUSCULAR HGB CONC 33 g/dL (33-37); MEAN CORPUSCULAR VOLUME 86.2 fL (80-94); MONOCYTES # (AUTO) 0.5 K/uL (0.8-1.0); MONOCYTES % (AUTO) 4.5 % (1.7-9.3); NEUTROPHILS # (AUTO) 6.8 K/uL (1.8-7.7); NEUTROPHILS % (AUTO) 65.4 % (42.2-75.2); PLATELET COUNT (AUTO) 346 K/uL (140-450); RED BLOOD CELL COUNT(AUTO) 5.12 MIL/uL (4.20-5.40); RED CELL DISTRIBUTION WIDTH 13.9 % (11.6-13.7); WHITE BLOOD COUNT (AUTO) 10.4 K/uL (4.8-10.8)
--- NOTE | 2024-04-18 17:50 | NUR ---
pt taken to ct via [facility]
[2024-04-18 17:55] LABS: ANION GAP 17.8 (8-16); CALCIUM 9.9 mg/dL (8.5-10.1); CARBON DIOXIDE 25.6 mmol/L (21-32); CREATININE 1.2 mg/dL (0.6-1.3); POTASSIUM 4.4 mmol/L (3.5-5.1)
[2024-04-18 18:02] LABS: INR 0.89 (0.8-1.2); PARTIAL THROMBOPLASTIN TIME 28.1 secs (22-35.6); PROTHROMBIN TIME 9.5 secs (10.8-13.4)
--- NOTE | 2024-04-18 18:05 | NUR ---
pt brought back via [facility]
--- NOTE | 2024-04-18 19:20 | NUR ---
REPORT GIVEN TO CHARISMA CUBA. TRANSFER OF CARE AT THIS TIME
--- NOTE | 2024-04-18 20:20 | NUR ---
URINE SPICEMENT SENT TO LAB
[2024-04-18 20:55] LABS: BILIRUBIN,URINE NEGATIVE (NEGATIVE); BLOOD, URINE NEGATIVE (NEGATIVE); COLOR,URINE YELLOW (YELLOW); LEUKOCYTE ESTERASE ,URINE NEGATIVE (NEGATIVE); NITRITE, URINE NEGATIVE (NEGATIVE); PROTEIN,URINE 2+ (NEGATIVE); UGLUCOSE 1+ (NEGATIVE); UROBILINOGEN,URINE 0.2 EU/dL (0.2 - 1)
[2024-04-18 20:56] LABS: APPEARANCE,URINE SLIGHTLY HAZY (CLEAR)
[2024-04-18 21:01] LABS: RBC,URINE 0-5 /HPF (0-5)
[2024-04-18 21:02] LABS: BACTERIA,URINE 1+ /HPF (None Seen); MUCUS,URINE 1+ /LPF (None Seen); SQUAMOUS EPITHELIAL CELL,UR 4-10 (MOD) /LPF (0-3 (FEW)); WBC,URINE 0-5 /HPF (0-5)
--- NOTE | 2024-04-18 21:30 | NUR ---
ALL RESULTS BACK AND NOTED BY ERMD AND FOR D/C
[2024-04-18 22:30] VITALS: BP 170/85; PULSE 81; RESP 15; TEMP 98.2; O2SAT 95
--- NOTE | 2024-04-18 22:30 | NUR ---
Patient discharged with v/s stable. Written and verbal after care instructions given and explained. Patient verbalized understanding. Ambulatory with by SON. All questions addressed prior to discharge. Advised to follow up with PMD.
== END 2024-04-18 22:30 | disposition home or self-care (01) ==
LOC: MED 16:47
DX: I10 Essential (primary) hypertension (principal); R51.9 Headache, unspecified; E11.9 Type 2 diabetes mellitus without complications; Z79.84 Long term (current) use of oral hypoglycemic drugs; Z79.899 Other long term (current) drug therapy
CPT/HCPCS: 36415; 70450; 71045; 80048; 81001; 82948; 84484; 85025; 85610; 85730; 96374; 99285; J3490; 93005